=== PATIENT | female | born 1980 | race Caucasian/White ===

== ENCOUNTER 2024-09-15 10:21 | Emergency (ER) | payer MEDICAID ==
[~2024-09-15] VITALS: Ht 160 cm; Wt 97.5 kg
[~2024-09-15 10:21] MED LIST: CEPH500T PO; IBUP-1490 PO
[2024-09-15 10:40] VITALS: BP 124/87; TEMP 98.3
[2024-09-15 11:38] VITALS: O2SAT 97
== END 2024-09-15 11:38 | disposition home or self-care (01) ==
LOC: ER 10:36
DX: T16.2XXA Foreign body in left ear, initial encounter (principal); Z86.73 Personal history of transient ischemic attack (TIA), and cerebral infarction without residual deficits; Z79.899 Other long term (current) drug therapy; W44.G1XA Audio device entering into or through a natural orifice, initial encounter; Y92.89 Other specified places as the place of occurrence of the external cause; Y93.89 Activity, other specified; Y99.8 Other external cause status